=== PATIENT | male | born 1970 | race Hispanic/Latino ===

== ENCOUNTER → 2018-03-19 | Day surgery (SDC) | payer BC ==
[2018-03-18 10:44] LABS: BASOPHILS % 0.5 % (0.0-1.0); EOSINOPHILS # (AUTO) 0.1 (0.0-0.4); EOSINOPHILS % 0.9 % (0.0-6.0); HEMATOCRIT 44.5 % (38.2-49.6); HEMOGLOBIN 15.3 g/dL (14.0-18.0); LYMPHOCYTES % 29.7 % (18.0-39.1); MEAN CORPUSCULAR HEMOGLOBIN 30.2 pg (28-32); MEAN CORPUSCULAR HGB CONC 34.4 g/dL (31-35); MEAN CORPUSCULAR VOLUME 87.9 fL (81-99); MONOCYTES # (AUTO) 0.5 (0.2-0.8); MONOCYTES % 7.5 % (4.4-11.3); NEUTROPHILS % 61.2 % (38.7-80.0); PLATELET COUNT 223 x10e3/uL (140-360); RED BLOOD COUNT 5.06 x10e6/uL (4.3-5.7); RED CELL DISTRIBUTION WIDTH 13.2 % (11.7-14.4)
[2018-03-18 11:20] LABS: ANION GAP 14.9 mmol/L (8-16); BLOOD UREA NITROGEN 15 mg/dL (7-26); BUN/CREATININE RATIO 19 (6-25); CALCIUM 9.3 mg/dL (8.4-10.2); CARBON DIOXIDE 24 mmol/L (22-29); CHLORIDE 105 mmol/L (98-107); CREATININE, SERUM 0.77 mg/dL (0.72-1.25); EST GLOMERULAR FILTRATION RATE > 60 ML/MIN (60-); GLUCOSE 95 mg/dL (74-118); POTASSIUM 3.9 mmol/L (3.5-5.1); SODIUM 140 mmol/L (136-145)
[~2018-03-19] MED LIST: ACETAMINOPHEN 1000 MG/100 ML IV ONE; BUPIVACAINE 0.5%/EPI 30 ML SDV INJ ONE; CEFAZOLIN SOD 2 GM/D5W 50ML 50 ML IV ONE; DEXAMETHASONE SOD PHOS INJ 4 MG/ML VIAL ONE; FENTANYL CITRATE/PF 100MCG/2 ML INJ ONE; KETOROLAC TROMETHAMINE 30 MG/ML VIAL ONE; LIDOCAINE HCL (LTA) 4 ML SOLN ONE; LIDOCAINE HCL 2% LOCAL INJ 5 ML SDV VIAL INJ ONE; MIDAZOLAM HCL 2 MG/2 ML VIAL ONE; ONDANSETRON HCL INJ 2 MG/ML VIAL ONE; PROPOFOL IV EMULSION 10 MG/ML 20 ML VIAL ONE; ROCURONIUM BROMIDE 10 MG/ML 5ML VIAL ONE; SEVOFLURANE INHAL SOLN 250 ML PEN BTL ONE
--- NOTE | 2018-03-19 15:32 | Operative Report ---
DATE OF PROCEDURE: March 19, 2018 PREOPERATIVE DIAGNOSIS: Umbilical and left inguinal hernias. POSTOPERATIVE DIAGNOSIS: Umbilical and left inguinal hernias. PROCEDURES PERFORMED 1. Repair of umbilical hernia with Proceed ventral patch medium size. 2. Repair of left inguinal hernia with the Ultrapro Hernia System oval type. ANESTHESIA: General endotracheal. ESTIMATED BLOOD LOSS: Minimal. DRAINS: None. COMPLICATIONS: None. INDICATIONS AND FINDINGS: The patient is a 47-year-old male who was evaluated by urology because of complaints of a burning sensation in the penis and was diagnosed with an umbilical as well as a left inguinal hernia and referred to general surgery. INTRAOPERATIVE FINDINGS: The patient had an umbilical hernia with herniation of properitoneal fat through a 1.5-cm defect. There was a left inguinal hernia that consisted of herniation of properitoneal fat through the internal inguinal ring. The Ultrapro Hernia System oval type was placed. DESCRIPTION OF PROCEDURE: With the patient lying on the operative table in the supine position, after administration of general endotracheal anesthesia, he was prepped and draped for repair of umbilical hernia and left inguinal hernia. The procedure was begun with the umbilical hernia repair first. An incision was made inferior to the umbilicus, and the dissection was carried down through the skin and subcutaneous tissue until the hernia was identified. It was dissected free from the surrounding tissues. It consisted of properitoneal fat and some omentum. All of that was excised and tied off with 2-0 silk. The intra-abdominal cavity was entered. Then the Proceed ventral patch mesh medium size was deployed in the intra-abdominal location laying flush against the abdominal wall without any interposition of tissue. It was then secured to the local tissues using a series of interrupted 2-0 Ethibond suture. After this was done, the fascia was closed loosely over the mesh with #0 interrupted Ethibond sutures. The wound was irrigated and bleeding points cauterized. Sponge and instrument counts were pronounced correct. The wound was closed in layers using 2-0 Vicryl to tack the umbilicus to the fascia and 2-0 chromic for the soft tissues. The skin was closed using a combination of vinny and 3-0 silk. Attention was directed to the left groin, which had been prepped and draped. A transverse groin incision was made after local infiltration of the skin incision with 0.5% Marcaine with epinephrine. A transverse incision was then made and deepened through skin and subcutaneous tissue until the external aponeurosis was identified. This was incised along the course of its fibers, transecting the external inguinal ring. Medial and lateral leads were developed. The cord was mobilized at the level of the pubic tubercle and retracted away from the operative field by a Blackfoot drain. The cremaster veil was incised. There was no indirect hernia sac, but there was a large lipoma of the cord and widening of the internal inguinal ring. We excised the lipoma and tied it off with 2-0 silk. We then incised the transversalis fascia and then deployed the Ultrapro Hernia System oval type with the underlay part of the mesh over the direct space and the overlay part of mesh over the inguinal canal floor. A slit was made to accommodate the cord, and then the mesh was secured to the local tissues using a series of interrupted 2-0 Ethibond sutures. The wound was irrigated. Bleeding points were cauterized. Sponge and instrument count was pronounced correct. Then the wound was closed in layers using 2-0 Vicryl for the external oblique aponeurosis, 2-0 plain catgut for the soft tissues, and the skin was closed using vinny. The patient tolerated the procedure well and was taken to the recovery room in stable condition. Job#: [id number]
== END | disposition home or self-care (01) ==
LOC: OR 07:27
PROVIDERS: ATTEND Surgery
DX: K42.9 Umbilical hernia without obstruction or gangrene (principal); K40.90 Unilateral inguinal hernia, without obstruction or gangrene, not specified as recurrent; D17.6 Benign lipomatous neoplasm of spermatic cord; E66.9 Obesity, unspecified; Z01.810 Encounter for preprocedural cardiovascular examination; Z01.812 Encounter for preprocedural laboratory examination; Z68.36 Body mass index [BMI] 36.0-36.9, adult
CPT/HCPCS: 36415; 49505; 49585; 80048; 85025; 88302; 93005; C1781 ×2; J1100; J1885; J2001; J2250; J2405; 88304